=== PATIENT | male | born 1990 | race African-American/Black ===

== ENCOUNTER 2016-09-09 22:05 | Emergency (ER) | payer OTHER ==
[~2016-09-09] VITALS: Ht 175.3 cm; Wt 75.0 kg
[2016-09-10] MEDS ORDERED: BACITRACIN ZINC OINT UDPKT TOP ONE (02:00)
[2016-09-10] MEDS ORDERED: KETOROLAC 60MG/2ML VIAL IM ONE (02:00)
[2016-09-10 02:52] VITALS: BP 100/63
== END 2016-09-10 03:20 | disposition home or self-care (01) ==
LOC: ER 22:15
DX: S00.83XA Contusion of other part of head, initial encounter (principal); R51 Headache; R41.82 Altered mental status, unspecified; M54.2 Cervicalgia; S50.311A Abrasion of right elbow, initial encounter; S50.811A Abrasion of right forearm, initial encounter; M79.641 Pain in right hand; M79.642 Pain in left hand; M25.522 Pain in left elbow; M54.5 Low back pain; R03.0 Elevated blood-pressure reading, without diagnosis of hypertension; Y04.2XXA Assault by strike against or bumped into by another person, initial encounter; Y93.89 Activity, other specified; Y92.89 Other specified places as the place of occurrence of the external cause; G40.909 Epilepsy, unspecified, not intractable, without status epilepticus; F17.210 Nicotine dependence, cigarettes, uncomplicated
CPT/HCPCS: 70450; 71010; 72100; 72125; 73080; 73090; 73130; 96372; 99284; J1885; Z7610